=== PATIENT | male | born 1965 | race Caucasian/White ===

== ENCOUNTER 2018-01-28 06:16 | Day surgery (SDC) | payer BC ==
[2018-01-28] VITALS (8 sets, daily range): BP systolic 117–140; BP diastolic 71–80
[~2018-01-28] VITALS: Ht 182.9 cm; Wt 94.3 kg
[2018-01-28] MEDS ORDERED: LOSARTAN POTASS50 MG ORAL (06:41)
--- NOTE | 2018-01-28 06:44 | Anethesia Preoperative Eval ---
Anesthesia Pre-op PMH/ROS General Date of Evaluation: Jan 28, 2018 Time of Evaluation: 06:42 Anesthesiologist: bren ASA Score: ASA 3 Mallampati Score Class I : Soft palate, uvula, fauces, pillars visible Class II: Soft palate, uvula, fauces visible Class III: Soft palate, base of uvula visible Class IV: Only hard plate visible Mallampati Classification: Class II Surgeon: darwin Diagnosis: colon screening Surgical Procedure: colonoscopy Anesthesia History: none Social History: smoking Family History: no anesthesia problems Allergies: Coded Allergies: No Known Allergies (Unverified , 01/28/18) Medications: see eMAR Past Medical History Cardiovascular: Reports: HTN Musculoskeletal/Integumentary: Reports: DJD PSxH Narrative: right knee surgery Anesthesia Pre-op Phys. Exam Physician Exam Last Vital Signs Date Time Temp Pulse Resp B/P (MAP) Pulse Ox O2 Delivery O2 Flow Rate FiO2 01/28/18 06:44 97.9 78 18 140/80 (100) 98 97.9 01/28/18 06:43 Room Air Constitutional: NAD Neurologic: CN 2-12 intact Cardiovascular: RRR Respiratory: CTA Gastrointestinal: S/NT/ND Airway Exam Mallampati Score: Class II MO: full Neck: supple TMD: 2fb ROM: full Teeth: intact Anesthesia Pre-op A/P Risk Assessment & Plan Assessment: asa3 Plan: mac Status Change Before Surgery: No Pre-Antibiotics Drug: Tonya Monsivais MD Jan 28, 2018 06:44
[2018-01-28] MEDS ORDERED: Atropine Sulfate 0.4mg/ml inj ONE (07:00)
[2018-01-28] MEDS ORDERED: Propofol 200mg/20ml IV ONE (07:00)
[2018-01-28] MEDS ORDERED: LR 1000ml ONE (07:00)
[2018-01-28] MEDS ORDERED: Lidocaine 1% MPF 10mg/ml 5ml ONE (07:00)
[2018-01-28] MEDS ORDERED: LR 1000ml 1,000 ML IVLG SCH (07:02)
--- NOTE | 2018-01-28 07:08 | Short Stay Surgery H&P ---
History of Present Illness History of Present Illness Chief Complaint see H&P HPI Lul Wynn is a 52 year old male who was admitted on for Colon Screening Patient History Allergies: Coded Allergies: No Known Allergies (Unverified , 01/28/18) Medication History Scheduled Losartan Potassium* (Losartan Potassium*), 50 MG ORAL DAILY, (Reported) Physical Exam Vital Signs Last Vital Signs Date Time Temp Pulse Resp B/P (MAP) Pulse Ox O2 Delivery O2 Flow Rate FiO2 01/28/18 06:44 97.9 78 18 140/80 (100) 98 97.9 01/28/18 06:43 Room Air Plan Attestation Are the patient's medical conditions optimized for surgery? Vivian Thao MD Jan 28, 2018 07:08
--- NOTE | 2018-01-28 07:09 | Pre-Procedure Note/Attestation ---
Pre-Procedure Note/Attestation Complete Prior to Procedure Planned Procedure: not applicable Procedure Narrative: colon Indications for Procedure Pre-Operative Diagnosis: screen Attestation I attest that I discussed the nature of the procedure; its benefits; risks and complications; and alternatives (and the risks and benefits of such alternatives ), prior to the procedure, with the patient (or the patient's legal sales representative [employer]). I attest that, if there was a reasonable possibility of needing a blood transfusion, the patient (or the patient's legal sales representative [employer]) was given the [facility] standardized written summary, pursuant to the [place] Blood Safety Act ([place] Health and Safety Code # 1645, as amended). I attest that I re-evaluated the patient just prior to the surgery and that there has been no change in the patient's H&P, except as documented below: Vivian Thao MD Jan 28, 2018 07:09
[2018-01-28] MEDS ORDERED: DiphenhydrAMINE 50mg/ml Inj IVP PRN (07:15)
[2018-01-28] MEDS ORDERED: Midazolam 2mg/2ml Inj IVP PRN (07:15)
[2018-01-28] MEDS ORDERED: fentaNYL 100 mcg/2 mL IV PRN (07:15)
[2018-01-28] MEDS ORDERED: Atropine Inj 1mg/10ml Syr IV PRN (07:15)
[2018-01-28] MEDS ORDERED: Labetalol 5mg/ml 20ml vial IV PRN (07:15)
--- NOTE | 2018-01-28 07:52 | Immediate Post-Op Evaluation ---
Immediate Post-Op Evalulation Immediate Post-Op Evalulation Procedure: colonoscopy Date of Evaluation: Jan 28, 2018 Time of Evaluation: 07:50 IV Fluids: 275ml lr Blood Products: none Estimated Blood Loss: negligible Blood Pressure Systolic: 127 Blood Pressure Diastolic: 75 Pulse Rate: 51 Respiratory Rate: 18 O2 Sat by Pulse Oximetry: 100 Temperature (Fahrenheit): 97.6 Pain Score (1-10): 0 Nausea: No Vomiting: No Complications none Patient Status: awake, reacts, patent Hydration Status: adequate Drug: Tonya Monsivais MD Jan 28, 2018 07:52
--- NOTE | 2018-01-28 07:53 | 48 Hour Post Anesthesia Eval ---
Post Anesthesia Evaluation Procedure: colonoscopy Date of Evaluation: Jan 28, 2018 Time of Evaluation: 07:53 Blood Pressure Systolic: 130 0: 75 Pulse Rate: 51 Respiratory Rate: 18 Temperature (Fahrenheit): 97.6 O2 Sat by Pulse Oximetry: 100 Airway: patent Nausea: No Vomiting: No Pain Intensity: 0 Hydration Status: adequate Cardiopulmonary Status: stable Mental Status/LOC: patient returned to baseline Post-Anesthesia Complications: none Follow-up care needed: N/A Tonya Fortune MD Jan 28, 2018 07:53
--- NOTE | 2018-01-28 08:19 | Endoscopy Procedure Note ---
Endoscopy Procedure Note General Indication for Procedure: screen Procedures Performed: colonoscopy Operative Findings/Diagnosis: nl Specimen: none Pt Tolerated Procedure Well: Yes Estimated Blood Loss: none Anesthesia Anesthesiologist: Kirstin morataya Anesthesia: MAC Medications Medication Given: see anesthesia record Inserted Devices Implant(s) used?: No GI Core Measures 50 yrs or older w/o bx or poly: Not Applicable 10yrs. F/U not recommended: Not Applicable If not recommended, why?: Vivian Thao MD Jan 28, 2018 08:19
--- NOTE | 2018-01-28 08:21 | Brief Operative Note ---
Immediate Post Operative Note Operative Note Chief Complaint: abd pain Pre-op Diagnosis: screen Procedure: esophagogastroduodenoscopybx Post-op Diagnosis: white colored duodenal mucosa Surgeon: darwin Anesthesiologist: Kirstin Merlos Anesthesia: MAC Specimen: yes Complications: none Fluids: recorded Estimated Blood Loss: none Drains: none Implant(s) used?: No Vivian Thao MD Jan 28, 2018 08:21
--- NOTE | 2018-01-28 11:01 | Procedure Note ---
DATE OF PROCEDURE: 01/28/2018 GASTROENTEROLOGY PROCEDURE REPORT PROCEDURE: Screening colonoscopy. SURGEON: Vivian Thao M.D. ANESTHESIOLOGIST: Tonya Fortune M.D. PRE-ENDOSCOPIC DIAGNOSIS: Screening. POST-ENDOSCOPIC DIAGNOSIS: Normal colonoscopy. DESCRIPTION OF PROCEDURE: The procedure, its risks, indications, alternatives, and possible complications were explained to the patient and informed consent was obtained. The patient was sedated and a rectal exam was done, which was normal. The colonoscope was introduced into the rectum and advanced to 10 cm into the terminal ileum. The mucosa examined carefully upon withdrawal phase and no abnormalities were identified. Retroflexed view of the rectum was unremarkable. The colonoscope was removed. The patient was sent to recovery in good condition. COMPLICATIONS: None. RECOMMENDATIONS: 1. Resume oral diet. 2. Follow up with primary physician. 3. Next colonoscopy in five to ten years. Thank you for asking me to participate in the care of this patient. Vivian Thao M.D. DR: LEXIE JOB#: [id number] CC: Dr. Girish Winters
== END 2018-01-28 09:00 | disposition home or self-care (01) ==
LOC: GAS 06:16
DX: Z12.11 Encounter for screening for malignant neoplasm of colon (principal); I10 Essential (primary) hypertension; M19.90 Unspecified osteoarthritis, unspecified site
CPT/HCPCS: 45378; J0461; J2704; J7120; 94003; 94150